=== PATIENT | female | born 1965 | race Caucasian/White ===

== ENCOUNTER → 2021-10-08 | Outpatient (CLI) | payer BC ==
--- NOTE | 2021-10-08 10:13 | CT ---
EXAMINATION TYPE: CT sinus wo con DATE OF EXAM: 10/08/2021 COMPARISON: None available HISTORY: sinusitis CT DLP: 618.1 mGycm. Automated Exposure Control for Dose Reduction was Utilized. TECHNIQUE: CT scan of the sinuses is performed without contrast, axial images are obtained, coronal r eformatted images are also reviewed. FINDINGS: Deviated bony nasal septum convex to the right side with a bony spur. Slightly hypoplastic right midd le turbinate secondary to the deviated bony nasal septum. Unremarkable left middle turbinate and infe rior turbinates. Mild mucosal thickening/adhesions at the anterior aspect of the nasal fossa bilatera lly, seen adjacent to the cartilaginous septum. Patent infundibulum bilaterally. Slightly obliterated right ostiomeatal complex by the bony nasal sep handy deviation. Unremarkable left ostiomeatal complex. Minimal mucosal thickening of the inferior aspe cts of the maxillary sinuses. Otherwise unremarkable maxillary sinuses, frontal sinus, ethmoid air ce lls and sphenoid sinus. Patent sphenoethmoidal recesses. Minimal opacification of the left inferior mastoid air cells. Grossl y unremarkable symmetrical TMJs. Unremarkable visualized portion of the brain and orbits. IMPRESSION: Minimal mucosal thickening of the maxillary sinuses, otherwise unremarkable paranasal sinuses. Deviat ed bony nasal septum and other findings as described above.
== END | disposition home or self-care (01) ==
LOC: RADCTMAIN 07:33
PROVIDERS: ATTEND Otolaryngology
DX: J34.89 Other specified disorders of nose and nasal sinuses (principal); J34.2 Deviated nasal septum
CPT/HCPCS: 70486

== ENCOUNTER → 2022-02-04 | Outpatient (CLI) | payer BC ==
[2022-02-04 19:23] LABS: Immunoglobulin M 69.4 mg/dL (40.0-280.0)
[2022-02-05 14:44] LABS: C-ANCA <1:20 Titer (<1:20)
== END | disposition home or self-care (01) ==
LOC: LABWHC1 12:20
DX: D32.9 Benign neoplasm of meninges, unspecified (principal)
CPT/HCPCS: 36415; 82306; 82784; 82785; 86038; 86235; 86255

== ENCOUNTER → 2022-03-04 | Outpatient (CLI) | payer BC ==
--- NOTE | 2022-03-04 13:46 | CT ---
EXAMINATION TYPE: CT soft tissue neck w con CT DLP: 593 mGycm, Automated exposure control for dose reduction was used. DATE OF EXAM: 03/04/2022 12:40 PM COMPARISON: CT sinuses 10/08/2021. CLINICAL INDICATION:Female, 56 years old with history of R22.1 swelling/mass/lump in right side neck; TECHNIQUE: Standard enhanced CT of the neck following intravenous administration of 100 cc of Isovue 300. Axial sections with coronal and sagittal reformats were obtained. A BB marker was placed at sit e of palpable abnormality. FINDINGS: Dental amalgam streak artifact which limits evaluation. Brain: Visualized portions are grossly unremarkable. Orbits: Unremarkable Sinuses: Grossly unremarkable. Suprahyoid Neck: The oropharynx, oral cavity, parapharyngeal and retropharyngeal spaces are clear and symmetric. The nasopharynx is unremarkable. Infrahyoid Neck: The larynx, hypopharynx, and supraglottic area are clear and symmetric. Parotid Glands: Tiny intraparotid lymph node measuring 4 mm short axis in the right parotid gland. Th e left frontal gland is unremarkable. Submandibular Glands: Unremarkable. Musculoskeletal: Degenerative disc disease changes of the visualized spine are present. 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 Grade 1 anterolisthesis of C3 on C4 and C4 on C5, likely degenerative. Lymph nodes: A few nonenlarged lymph nodes are seen along both anterior chains of the neck. Vascular structures: Visualized major arteries are patent without evidence of aneurysm. Thoracic Inlet/airway: Airway is patent. The lung apices are clear. Soft tissues/Thyroid: Thyroid and remainder of the soft tissues are unremarkable. Other: none. IMPRESSION Tiny benign-appearing intraparotid lymph node measuring 4 mm in the right parotid gland is in the reg ion of reported palpable abnormality, otherwise unremarkable examination.
== END | disposition home or self-care (01) ==
LOC: RADCTMAIN 12:03
PROVIDERS: ATTEND Otolaryngology
DX: R59.0 Localized enlarged lymph nodes (principal)
CPT/HCPCS: 70491; Q9967

== ENCOUNTER 2022-08-05 09:13 | Day surgery (SDC) | payer BC ==
[2022-07-30 12:38] VITALS: BMI 26.6
[~2022-08-05 09:13] MED LIST: CLINDAMYCIN 600 MG in DEXTROSE 5% IN WATER 50 ML IVPB PRN
[2022-08-05] MEDS ORDERED: LACTATED RINGERS 1,000 ML IV ONE (09:23)
[2022-08-05] MEDS: FAMOTIDINE 20 MG/2 ML VIAL IV PRN ×2 (09:45→09:55)
[2022-08-05] MEDS: ONDANSETRON 4 MG/2 ML VIAL IVP PRN ×2 (09:45→15:20)
[2022-08-05] MEDS: OXYMETAZOLINE 0.05% NASL SPRAY 1 SPRAY BOTTLE EA NOSTRIL PRN ×5 (09:45→10:05)
[2022-08-05] MEDS ORDERED: ePHEDrine 50 MG/ML 1 ML VIAL ONE (11:54)
[2022-08-05] MEDS ORDERED: SUCCINYLCHOLINE CHLORIDE 200 MG/10 ML VIAL IV ONE (11:54)
[2022-08-05] MEDS ORDERED: PROPOFOL 10 MG/ML 20 ML VIAL IV ONE (11:54)
[2022-08-05] MEDS ORDERED: MIDAZOLAM 2 MG/2 ML VIAL ONE (11:54)
[2022-08-05] MEDS ORDERED: LIDOCAINE 2% INJ 20 MG/ML (2 ML VIAL) ONE (11:54)
[2022-08-05] MEDS ORDERED: fentaNYL (PF) 50 MCG/ML 2 ML AMP ONE (11:54)
[2022-08-05] MEDS ORDERED: FLUORESCEIN STRIPS 1 MG STRIP MISCELLANE ONE (12:23)
[2022-08-05] MEDS ORDERED: LIDOCAINE 2%-EPI 1:100,000 20 ML VIAL SUBMUCOSAL ONE (12:23)
[2022-08-05] MEDS ORDERED: EPINEPHrine 1 MG/ML (MDV) 30 ML VIAL TOPICAL ONE (12:23)
[2022-08-05] MEDS ORDERED: BUPIVACAIN-EPI 0.25%-1:200,000 30 ML VIAL INTRAARTIC ONE (12:23)
[2022-08-05] MEDS ORDERED: BACITRACIN ZINC 500 UNIT/GM OINT 28.4 GM TUBE TOPICAL ONE (13:11)
[2022-08-05 13:40] VITALS: TEMP 97
--- NOTE | 2022-08-05 13:59 | P.OP ---
Date of Procedure: 08/05/22 Preoperative Diagnosis: Deviated nasal septum Bilateral hypertrophy of inferior nasal turbinates Chronic maxillary sinusitis Postoperative Diagnosis: Same Procedure(s) Performed: Septoplasty Bilateral functional endoscopic sinus surgery maxillary Bilateral submucosal resection of the inferior nasal turbinates with outfracturing compression Anesthesia: ARON Surgeon: Jimmy Jones Estimated Blood Loss (ml): 20 Pathology: other (Sinonasal) Condition: stable Disposition: PACU Indications for Procedure: This patient presented to the office with chronic sinus symptoms CAT scan evaluation demonstrates chronic maxillary sinusitis with a deviated nasal septum and large inferior turbinates. The patient's been on multiple courses of antibiotics including Levaquin and clindamycin she tried Flonase nasal spray with no improvement in nasal irrigations had failed she continues to be frustrated with her continued sinonasal symptoms and therefore sinus surgery will be planned. All risks, benefits, and alternative therapies were discussed in detail. Questions were answered. Consent was obtained Operative Findings: has a deviated nasal septum and clear evidence of chronic maxillary sinusitis the large amount of diseased tissue of the maxillary sinuses which were removed inferior turbinates were hypertrophic and obstructive. Description of Procedure: Preoperatively the patient had her consent reviewed. All risks, benefits, and alternative therapies were discussed and all questions were answered. The patient was informed of the procedure and a confirmatory fashion and was in agreement to proceed forward. In the operating room a timeout was performed and all issues were reviewed with the operating room staff. The patient underwent a general inhalation anesthetic and intubated by the department of anesthesia and also monitored throughout the entire case by the department of anesthesia. A functioning IV line was in place. The patient was positioned in the supine position with slight reverse Tr endelenburg. Preoperatively she had Afrin nasal spray. We then injected the septum, lateral nasal wall, turbinates with lidocaine 1% with epinephrine 1 100,000. Approximately 10 minutes were allowed wait for full vasoconstrictive effects to take place. A caudal incision was made over the caudal portion of the left septum down to the mucoperichondrium. A mucoperichondrial flap was developed with use of tunnels inferiorly and superiorly. We identified the deviation and with use of crosshatching incisions and removal of some redundant strips of septal cartilage, the septum was placed back in the midline in excellent position relieving this patient of this deviated nasal septum. We closed the incision with a 40 rapid Vicryl and a quilting stitch was used to reapproximate the septal flap. The septum was corrected and a swing door type fashion. The septum was sutured fixated to the vomer area and groove with use of a 40 rapid Vicryl. Attention was then paid to the middle turbinates which were brought medial. The uncinate process was visualized and reflected forward with a Lazo probe. With the use of an endoscope utilizing 0 30 and 90 we perform this procedure and utilize this endoscope on a video camera throughout the entire procedure. This was with use of a Berrios segun scope. We then took down the uncinate process with a pediatric backbiter and a microdebrider. After the uncinate process was removed the maxillary sinuses were opened widely with use of a straight boss. We open the maxillary sinuses widely and into the maxillary sinuses with endoscopic visualization. Diseased tissue was removed from the maxillary sinuses bilaterally and the sinuses were opened bilaterally. Excellent hemostasis was obtained throughout the entire case and very low blood was noted. The skull base and orbital nuñez looked good. We reinspected the sinonasal region and no bleeding was encountered. Propel many's were placed bilaterally along with xerogel for hemostasis. The inferior turbinates were entered with a 2 mm microdebrider. The inferior turbinates were entered behind the head of the inferior turbinate. We remove bone and submucosal elements with a microdebrider bilaterally with care to avoid any operation of the head of the inferior turbinate. The inferior turbinates were then outfractured and compressed with a Shark Punch nasal elevator. Santiago splints were inserted. Nasal pore was placed between the inferior turbinate and doylel splints. The patient was then taken to postanesthesia recovery in excellent condition. A follow-up is scheduled for next week. The patient is to contact me if there is any problems or issues.
[2022-08-05] MEDS ORDERED: HYDROmorphone 0.5 MG/0.5 ML SYRINGE IVP ONE ×3 (14:00→14:05)
[2022-08-05 15:08] VITALS: RESP 16
[2022-08-05] MEDS ORDERED: ONDANSETRON 4 MG/2 ML VIAL ONE (15:17)
[2022-08-05] MEDS ORDERED: oxyCODONE-APAP 5-325MG 1 EACH TAB PO ONE (15:38)
[2022-08-05] MEDS ORDERED: oxyCODONE-APAP 5-325MG 1 EACH TAB ONE (15:39)
[2022-08-05 15:56] VITALS: BP 130/83; PULSE 66
== END 2022-08-05 16:31 | disposition home or self-care (01) ==
LOC: OR 09:13
PROVIDERS: ATTEND Otolaryngology
DX: J34.2 Deviated nasal septum (principal); J32.0 Chronic maxillary sinusitis; J34.3 Hypertrophy of nasal turbinates; G43.909 Migraine, unspecified, not intractable, without status migrainosus; Z88.0 Allergy status to penicillin; Z88.2 Allergy status to sulfonamides; Z87.891 Personal history of nicotine dependence
CPT/HCPCS: 88305; 88300; 30520; 31267; 30140; C2625; J0171; J2250; J0330; J2405; J3010; J2704; J1170; J2001